=== PATIENT | female | born 1950 | race Caucasian/White ===

== ENCOUNTER 2018-04-23 23:39 | Emergency (ER) | payer OTHER ==
[~2018-04-23] VITALS: Ht 157.5 cm; Wt 88.8 kg
[~2018-04-23 23:39] MED LIST: ADVAIR 250/501 DISK IH; ASPIRIN E.C.81 M1 PO; ASPIRIN81 M2 PO; Advair HFA 45/21 IH; COLACE100 MG PO; DULCOLAX; ENALAPRIL; ENALAPRIL MALEA20 MG PO; Elavil PO; Flexeril PO; LYRICA150 MG PO; NEURONTIN300 MG PO; NORVASC5 MG PO; SENOKOT S,PE1 TABLET PO; Tylenol Regular Stre PO; VENTOLIN HFA18 GM IH; ZANAFLEX4 M1 PO; ZANAFLEX4 MG PO
[2018-04-24 00:41] LABS: BASOPHIL (%) 0.7 % (0-1); BASOPHIL COUNT 0.1 K/uL (0-0.1); EOSINOPHIL (%) 2.7 % (0-5); EOSINOPHIL COUNT 0.3 K/uL (0-0.3); HEMATOCRIT 39.1 % (36.0-46.0); HEMOGLOBIN 13.1 G/DL (11.9-15.5); IMMATURE GRANULOCYTE (%) 0.3 % (0.0-0.7); LYMPHOCYTE (%) 18.8 % (15-42); MCH 31.1 PG (29.0-34.0); MCHC 33.5 G/DL (30.0-36.0); MCV 92.9 FL (83-99); MONOCYTE (%) 10.1 % (3-12); MONOCYTE COUNT 1.1 K/uL (0-0.8); NEUTROPHIL (%) 67.4 % (45-76); NEUTROPHIL COUNT 7.1 K/uL (1.8-6.4); PLATELET COUNT 259 K/uL (156-360); RBC DIS.WIDTH-CV 14.5 % (11.8-14.6); RBC DIS.WIDTH-SD 49.2 % (39-53); RED BLOOD COUNT 4.21 M/uL (3.80-5.20); WHITE BLOOD COUNT 10.6 K/uL (4.1-10.2)
[2018-04-24 00:51] LABS: CHLORIDE 107 mEq/L (99-109); POTASSIUM 4.6 mEq/L (3.7-5.4); SODIUM 141 mEq/L (136-147)
[2018-04-24 00:52] LABS: GLUCOSE 112 mg/dL (70-99)
[2018-04-24 00:56] LABS: CREATININE 1.2 mg/dL (0.6-1.3); GFR ESTIMATE (CALCULATED) 48 mL/min/
[2018-04-24 00:57] LABS: UREA NITROGEN (BUN) 29 mg/dL (9-23)
[2018-04-24 01:01] LABS: TROP-I INTERPRETATION NEGATIVE; TROPONIN-I < 0.01 ng/mL (0.0-0.30)
[2018-04-24] MEDS ORDERED: NORCO 5/3251 TABLET PO (03:55)
[2018-04-24] MEDS ORDERED: LIDOCAINE700 MG TP (03:55)
[2018-04-24] MEDS ORDERED: MOTRIN600 MG PO (03:55)
[2018-04-24 04:07] VITALS: BP 104/57
== END 2018-04-24 04:09 | disposition home or self-care (01) ==
LOC: EME 23:39
PROVIDERS: Emergency Medicine
DX: S39.012A Strain of muscle, fascia and tendon of lower back, initial encounter (principal); I10 Essential (primary) hypertension; J45.909 Unspecified asthma, uncomplicated; Z79.51 Long term (current) use of inhaled steroids
CPT/HCPCS: 71046; 80048; 84484; 85025; 93005; 99281; 99285; J1885; J3010; J7030